=== PATIENT | male | born 2000 | race Caucasian/White ===

== ENCOUNTER 2022-06-22 06:12 | Day surgery (SDC) | payer BC ==
[2022-06-03 15:01] VITALS: BMI 21.1
[2022-06-22] MEDS ORDERED: ROPIVACAINE HCL 0.5% 30ML VIAL ONE (07:13)
[2022-06-22] MEDS ORDERED: DEXAMETHASONE SOD PHOSPHATE/PF 10 MG/ML SDV ONE (07:13)
[2022-06-22] MEDS ORDERED: MIDAZOLAM HCL 2 MG/2 ML SINGLE DOSE VIAL ONE (07:13)
[2022-06-22] MEDS ORDERED: BUPIVACAINE HCL/EPINEPHRINE/PF 30 ML VIAL IJ ONE (07:18)
[2022-06-22] MEDS ORDERED: EPINEPHrine 1:1,000 1,000 MCG/ML ML ONE (07:18)
[2022-06-22] MEDS ORDERED: DEXAMETHASONE SOD PHOSPHATE 4 MG/1 ML VIAL ONE (08:07)
[2022-06-22] MEDS ORDERED: ceFAZolin SODIUM 1 GM VIAL ONE (08:07)
[2022-06-22] MEDS ORDERED: ONDANSETRON 4 MG/2 ML VIAL ONE (08:07)
[2022-06-22] MEDS ORDERED: PROPOFOL 20 ML ONE ×2 (08:20→08:38)
[2022-06-22] MEDS ORDERED: ONDANSETRON 4 MG/2 ML VIAL IVPUSH PRN (10:10)
[2022-06-22] MEDS ORDERED: oxyCODONE HCL 5 MG TABLET PO PRN (10:10)
[2022-06-22 10:11] VITALS: RESP 18; TEMP 97.8
[2022-06-22] MEDS ORDERED: LACTATED RINGERS SOLUTION 1,000 ML IV SCH (10:15)
[2022-06-22 10:39] VITALS: BP 118/70; PULSE 72
== END 2022-06-22 10:42 | disposition home or self-care (01) ==
LOC: FASU 06:12
PROVIDERS: ATTEND Orthopaedic Surgery
PROC: 0LM24ZZ Reattachment of Left Shoulder Tendon, Percutaneous Endoscopic Approach (ICD-10-PCS; principal; 2022-06-22 08:24)
DX: M25.312 Other instability, left shoulder (principal)
CPT/HCPCS: 94760